=== PATIENT | male | born 1975 | race Caucasian/White ===

== ENCOUNTER 2022-02-09 14:52 | Emergency (ER) | payer OTHER, SELFPAY ==
[2022-02-09 15:15] VITALS: BP 174/96; PULSE 72; RESP 16; TEMP 36.6; O2SAT 97
[2022-02-09 15:35] LABS: SARS-CoV-2 Ag Positive (Negative)
--- NOTE | 2022-02-09 15:41 | ED.URI ---
HPI - URI/Sore Throat General Chief Complaint: Upper Respiratory Infection Stated Complaint: congestion COVID+ Source: patient Mode of arrival: ambulatory Limitations: no limitations History of Present Illness HPI Narrative: this is a 46-year-old gentleman with no previous medical history tested positive on Sunday with a home test of for COVID and presents today with nasal congestion cough with no shortness of breath no audible wheezing currently no fever chills. His was recently tested positive for COVID and received oral medication. The patient is here today with relatively mild symptoms but would like a medication for his COVID. MD elicited complaint: cough Onset (ago): day(s) Consistency: constant Severity: mild Related Data Allergies Allergy/AdvReac Type Severity Reaction Status Date / Time NKDA Allergy Unknown Uncoded 03/17/03 12:40 NKFA Allergy Unknown Uncoded 03/17/03 12:40 NA Allergy Uncoded 01/06/09 12:08 Review of Systems Review of Systems: All systems reviewed & are unremarkable except as noted in HPI and below PMFSH Past Medical History Medical History Patient denies medical problems Exam Const: General: no acute distress and alert Orientation/consciousness: patient oriented x3 Limitations: altered mental status HENMT: Head: normal to inspection Eyes: Conjunctivae: conjunctivae normal Pupils: Equal, round and reactive pupils present Neck: Neck: normal visual inspection and no lymphadenopathy Chest: Chest palpation & inspection: normal inspection of the chest Resp: Effort & Inspection: normal respiratory effort Cardio: Rate: regular rate Rhythm: regular rhythm GI: GI Palp: Yes Soft to palpation Percussion: Yes normal to percussion Urinary Catheter: Urinary Catheter: patent and draining Back/Spine/Pelvis: Back: no CVA tenderness Skin: General skin exam: normal color Rashes: no rashes Neuro: General: patient oriented x3 Extrem: General: normal to inspection Psych: Affect: normal affect Course Course Emergency Course: patient is positive for COVID and will be sending medication p.o. to his pharmacy. Vital Signs Vital signs: Vital Signs Temperature 36.6 C 02/09/22 15:15 Pulse Rate 72 02/09/22 15:15 Respiratory Rate 16 02/09/22 15:15 Blood Pressure 174/96 H 02/09/22 15:15 Pulse Oximetry 97 02/09/22 15:15 Temperature 36.6 C 02/09/22 15:15 Pulse Rate 72 02/09/22 15:15 Respiratory Rate 16 02/09/22 15:15 Blood Pressure 174/96 H 02/09/22 15:15 Pulse Oximetry 97 02/09/22 15:15 MDM - URI/Sore Throat Lab Data Labs: Lab Results 02/09/22 Range/Units 15:07 SARS-CoV-2 Ag (Rapid) Positive A (Negative) Critical Care Time Critical Care Time Critical Care Time: No Discharge Plan Discharge Clinical Impression: COVID Patient Disposition: Home, Self-Care Condition: Stable Instructions: Antibiotic Form, COVID-19 (Coronavirus Disease 2019) (ED) Additional Instructions: take medicine as prescribed isolate and drink plenty of fluids, Tylenol or Motrin for any fever or chills. Prescriptions: New Paxlovid (EUA) 150 mg x 2- 100 mg tablet See Rx Instructions .ROUTE .COMPLEX Qty: 30 RF: 0 Follow-up/Referrals: Cassius Henry MD [Primary Care Provider] - Stand Alone Forms: Work/School Release IP Time of Disposition: 15:47
[2022-02-09 15:50] VITALS: BP 150/82; PULSE 68; RESP 16; TEMP 36.4; O2SAT 97
--- NOTE | 2022-02-09 16:06 | PC.NURSE ---
patient called and states [facility] does not have prescription in stock, verbal order called into [facility] in [place]. [facility] called to cancel order.
== END 2022-02-09 15:57 | disposition home or self-care (01) ==
PROVIDERS: Emergency Provider Emergency Medicine; PCP Family Medicine
DX: U07.1 COVID-19 (principal)
CPT/HCPCS: 87426; 99283; C9803

== ENCOUNTER 2023-03-05 20:57 | Emergency (ER) | payer OTHER, SELFPAY ==
[2023-03-05 20:58] VITALS: BP 152/95; PULSE 94; RESP 18; TEMP 37; O2SAT 96
[2023-03-05] MEDS: TETANUS,DIPHTHERIA,AC PERTUSSIS ADULT 0.5 ML (ADACEL) IM (21:09)
--- NOTE | 2023-03-05 21:24 | ED.GENADULT ---
HPI - General Adult General Chief complaint: Wound/Laceration Stated complaint: Laceration History of Present Illness HPI narrative: Syed is a previously healthy 47M that presented to the ED after he cut the tip of his left thumb while tightening a chain saw blade. He had no other injuries. He is due for a TDAP shot. Related Data Home Medications Medication Instructions Recorded Confirmed No Home Medications 03/05/23 03/05/23 Allergies Allergy/AdvReac Type Severity Reaction Status Date / Time NKDA Allergy Unknown Uncoded 03/17/03 12:40 NKFA Allergy Unknown Uncoded 03/17/03 12:40 NA Allergy Uncoded 01/06/09 12:08 [facility] Past Medical History Medical History Patient denies medical problems Exam Const: General: healthy appearing Nutritional Appearance: well nourished Orientation/consciousness: patient oriented x3 HENMT: Head: normal to inspection Ears: external ears normal Eyes: Conjunctivae: conjunctivae normal Pupils: Equal, round and reactive pupils present Neck: Neck: normal visual inspection Chest: Chest palpation & inspection: normal inspection of the chest Resp: Effort & Inspection: normal respiratory effort Cardio: Rate: regular rate Skin: Other: shallow 2cm laceration on the tip of the left thumb Neuro: General: patient oriented x3, moves all extremities and no meningeal signs Extrem: General: normal to inspection Psych: Mental Status: mental status grossly normal Course Vital Signs Vital signs: Vital Signs Temperature 98.6 F 03/05/23 20:58 Pulse Rate 94 03/05/23 20:58 Respiratory Rate 18 03/05/23 20:58 Blood Pressure 152/95 H 03/05/23 20:58 Pulse Oximetry 96 03/05/23 20:58 Oxygen Delivery Room Air 03/05/23 20:58 Temperature 98.6 F 03/05/23 20:58 Pulse Rate 94 03/05/23 20:58 Respiratory Rate 18 03/05/23 20:58 Blood Pressure 152/95 H 03/05/23 20:58 Pulse Oximetry 96 03/05/23 20:58 Oxygen Delivery Room Air 03/05/23 20:58 Procedures Laceration Laceration 1: Date: 03/05/23 Time: 21:30 Site: other (left thumb ) Side (If applicable): left Description: linear Depth: simple, single layer ====== Skin Level ====== Skin layer closed with: dermabond ====== Subcutaneous Layer ====== ====== Muscle Layer ====== ====== Tendon Layer ====== Medical Decision Making Vital Signs Vital Signs: Vital Signs Temperature 98.6 F 03/05/23 20:58 Pulse Rate 94 03/05/23 20:58 Respiratory Rate 18 03/05/23 20:58 Blood Pressure 152/95 H 03/05/23 20:58 Pulse Oximetry 96 03/05/23 20:58 Oxygen Delivery Room Air 03/05/23 20:58 Temperature 98.6 F 03/05/23 20:58 Pulse Rate 94 03/05/23 20:58 Respiratory Rate 18 03/05/23 20:58 Blood Pressure 152/95 H 03/05/23 20:58 Pulse Oximetry 96 03/05/23 20:58 Oxygen Delivery Room Air 03/05/23 20:58 Discharge Plan Discharge Clinical Impression: Laceration Patient Disposition: Home, Self-Care Condition: Stable Instructions: Skin Adhesive Care (ED) Prescriptions: No Action No Home Medications Follow-up/Referrals: UNKNOWN,DOCTOR [Primary Care Provider] -
[2023-03-05 21:27] VITALS: BP 132/77; PULSE 77; RESP 17; TEMP 36.6; O2SAT 97
== END 2023-03-05 21:28 | disposition home or self-care (01) ==
PROVIDERS: Emergency Provider Family Medicine
DX: S61.012A Laceration without foreign body of left thumb without damage to nail, initial encounter (principal); Z23 Encounter for immunization; W27.0XXA Contact with workbench tool, initial encounter
CPT/HCPCS: 12001; 90471; 90715; 99282